=== PATIENT | male | born 1990 | race Caucasian/White ===

== ENCOUNTER 2019-12-10 23:48 | Emergency (ER) | payer OTHER ==
[~2019-12-10] VITALS: Ht 170.2 cm; Wt 65.8 kg
--- NOTE | 2019-12-10 23:51 | NUR ---
ED Nurse Note: pt presents to ED c/o anxiety and auditory hallucinations. pt states that he takes wellbutrin but has been off of it for a couple days. today has been hearing voices he states he was in a hotel room and could hear voices from guests in the other rooms. pt denies any pain or SOB, no SI/HI, states that he feels scared.
--- NOTE | 2019-12-10 23:52 | NUR ---
ED Nurse Note: pt appears to be anxious but follows commands and answers questions when asked
[2019-12-10] MEDS ORDERED: BUPROPION XL300 MG ORAL (23:53)
[2019-12-11] MEDS ORDERED: Haloperidol 5mg/ml Inj IM ONE (00:15)
[2019-12-11] MEDS ORDERED: LORazepam Inj 2mg/ml 1ml IM ONE (00:15)
--- NOTE | 2019-12-11 00:30 | Emergency Room Report ---
History of Present Illness General Chief Complaint: Behavioral Complaint Source: Patient (Homero Anderson MD) Present Illness HPI 29-year-old male presents ED for behavioral evaluation. Brought in by EMS. Stating he is hearing voices. History of depression and anxiety. States that he has not had his Wellbutrin in a day. Denies alcohol or drug use. Denies SI or HI. No other aggravating relieving factors. Denies any other associated symptoms (Homero Anderson MD) Allergies: Coded Allergies: No Known Allergies (Unverified , 12/10/19) COVID-19 Screening Contact w/high risk pt: No Recent Travel to affected area: No Experienced COVID-19 symptoms?: No COVID-19 Testing performed FELT HOOKER: No (Homero Anderson MD) Patient History Past Medical History: psych hx Past Surgical History: none Pertinent Family History: none Social History: Denies: smoking, alcohol use, drug use Immunizations: UTD Reviewed Nursing Documentation: PMH: Agreed; PSxH: Agreed (Homero Anderson MD) Nursing Documentation-PMH History Of Psychiatric Problem: Yes - MAJOR DEPRESSIVE DISORDER, ANXIETY (Homero Anderson MD) Review of Systems All Other Systems: negative except mentioned in HPI (Homero Anderson MD) Physical Exam Vital Signs Date Time Temp Pulse Resp B/P (MAP) Pulse Ox O2 Delivery O2 Flow Rate FiO2 12/10/19 23:47 98.2 72 18 98 Room Air Sp02 EP Interpretation: reviewed, normal General Appearance: alert, GCS 15, non-toxic, other - anxious Head: normocephalic, atraumatic Eyes: bilateral eye normal inspection, bilateral eye PERRL ENT: hearing grossly normal, normal pharynx, no angioedema, normal voice Neck: full range of motion, supple/symm/no masses Respiratory: chest non-tender, lungs clear, normal breath sounds, speaking full sentences Cardiovascular #1: regular rate, rhythm, no edema Cardiovascular #2: 2+ carotid (R), 2+ carotid (L), 2+ radial (R), 2+ radial (L) , 2+ dorsalis pedis (R), 2+ dorsalis pedis (L) Gastrointestinal: normal bowel sounds, non tender, soft, non-distended, no guarding, no rebound Rectal: deferred Genitourinary: normal inspection, no CVA tenderness Musculoskeletal: back normal, normal range of motion, gait/station normal, non- tender Neurologic: alert, motor strength/tone normal, oriented x3, sensory intact, responsive, speech normal Psychiatric: memory normal, no suicidal/homicidal ideation, no delusions, anxious Reflexes: 3+ bicep (R), 3+ bicep (L), 3+ tricep (R), 3+ tricep (L), 3+ knee (R) , 3+ knee (L) Lymphatic: no adenopathy (Homero Anderson MD) Medical Decision Making Diagnostic Impression: Primary Impression: Behavioral disorder ER Course Patient was signed out to me, pending reevaluation Reevaluation 7:36 AM patient is back to baseline no longer hearing voices feels comfortable going home no SI or HI Patient wants a refill of his Wellbutrin, will provide him with 300 mg daily (Andrzej Patiño MD) Last Vital Signs Date Time Temp Pulse Resp B/P (MAP) Pulse Ox O2 Delivery O2 Flow Rate FiO2 12/10/19 23:53 72 18 Room Air 12/10/19 23:53 98 12/10/19 23:47 98.2 (Homero Anderson MD) Disposition: HOME, SELF-CARE Condition: Stable Scripts Bupropion Hcl* (WELLBUTRIN*) 300 Mg Tab.er.24h 300 MG ORAL DAILY, #30 TAB 0 Refills Prov: Andrzej Patiño MD 12/11/19 Referrals: NOT CHOSEN IPA/,REFERRING (PCP) [facility] Patient Instructions: Major Depressive Disorder Additional Instructions: The patient was provided with discharge instructions, notified to follow-up with a primary care doctor and or specialist in the next 24-48 hours, and to return to the ED if they have worsening of their symptoms. Please note that this report is being documented using [employer] technology. This can lead to erroneous entry secondary to incorrect interpretation by the dictating instrument. Homero Anderson MD December 11, 2019 00:30 Andrzej Patiño MD December 11, 2019 07:38
--- NOTE | 2019-12-11 00:57 | NUR ---
ED Nurse Note: pt appears to be asleep in bed, states that the voices are gone
[2019-12-11 03:43] VITALS: BP 121/73
--- NOTE | 2019-12-11 03:43 | NUR ---
ED Nurse Note: pt appears to be asleep in bed, eyes are closed, breathing is even and non-labored. no acute distress is noted at this time. 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
--- NOTE | 2019-12-11 04:40 | NUR ---
HAND-OFF: Report given to DES Mcgill.
[2019-12-11] MEDS ORDERED: BUPROPION XL300 MG ORAL (07:37)
[2019-12-11 07:42] VITALS: BP 124/75
--- NOTE | 2019-12-11 07:42 | NUR ---
ER DISCHARGE NOTE: Patient is cleared to be discharged per ERMD, pt is aox4, on room air, with stable vital signs. pt was given dc and prescription instructions, pt was able to verbalize understanding, pt id band removed. pt is able to ambulate with steady gait. pt took all belongings.
== END 2019-12-11 07:42 | disposition home or self-care (01) ==
LOC: EDBD 23:48 → EMR 23:59
DX: F91.9 Conduct disorder, unspecified (principal); F41.9 Anxiety disorder, unspecified; F32.9 Major depressive disorder, single episode, unspecified
CPT/HCPCS: 96372; 99283; J1630